=== PATIENT | female | born 1940 | race Caucasian/White ===

== ENCOUNTER 2017-07-31 03:04 | Emergency (ER) | payer MEDICARE, OTHER ==
[~2017-07-31] VITALS: Ht 160 cm; Wt 51.7 kg
[2017-07-31 03:22] VITALS: BP 164/88
[2017-08-05] MEDS ORDERED: NIFEDIPINE ER30 M1 PO (09:54)
== END 2017-07-31 04:05 | disposition home or self-care (01) ==
LOC: ER 03:04
DX: I10 Essential (primary) hypertension (principal); R51 Headache; Z82.49 Family history of ischemic heart disease and other diseases of the circulatory system
CPT/HCPCS: 99282

== ENCOUNTER 2017-08-03 22:28 | Observation (INO) | payer MEDICARE, OTHER ==
[~2017-08-03] VITALS: Ht 160 cm; Wt 56.7 kg
[2017-08-04] VITALS (9 sets, daily range): BP systolic 102–159; BP diastolic 67–95
[2017-08-04] MEDS ORDERED: NIFEDIPINE CR 30 MG TAB PO ONE
[2017-08-04 00:09] LABS: INR 0.85; PARTIAL THROMBOPLASTIN TIME 29.7 seconds (23.8-35.5)
[2017-08-04 00:20] LABS: ALANINE AMINOTRANSFERASE 19 IU/L (0-55); ALBUMIN 4.3 g/dL (3.5-5.0); ALBUMIN/GLOBULIN RATIO 1.1 (0.8-2.0); ALKALINE PHOSPHATASE 66 IU/L (40-150); ANION GAP 10.7 mmol/L (8-16); BLOOD UREA NITROGEN 16 mg/dL (7-26); BUN/CREATININE RATIO 21 (6-25); CALCIUM 9.9 mg/dL (8.4-10.2); CARBON DIOXIDE 27 mmol/L (22-29); CHLORIDE 92 mmol/L (98-107); CREATINE KINASE 91 IU/L (29-168); CREATININE, SERUM 0.76 mg/dL (0.57-1.11); EST GLOMERULAR FILTRATION RATE > 60 ML/MIN (60-); GLUCOSE 96 mg/dL (74-118); POTASSIUM 3.7 mmol/L (3.5-5.1); SODIUM 126 mmol/L (136-145)
[2017-08-04 00:26] LABS: TROPONIN I 0.003 ng/mL (0-0.300)
[2017-08-04 00:33] LABS: BASOPHILS % 0.3 % (0.0-1.0); HEMATOCRIT 37.9 % (34.2-44.1); HEMOGLOBIN 13.2 g/dL (12.0-16.0); LYMPHOCYTES % 33.9 % (18.0-39.1); MEAN CORPUSCULAR HEMOGLOBIN 31.4 pg (28-32); MEAN CORPUSCULAR HGB CONC 34.8 g/dL (31-35); MONOCYTES # (AUTO) 0.4 (0.2-0.8); MONOCYTES % 7.2 % (4.4-11.3); NEUTROPHILS # (AUTO) 3.5 (2.1-6.9); NEUTROPHILS % 58.1 % (38.7-80.0); PLATELET COUNT 241 x10e3/uL (140-360); RED BLOOD COUNT 4.21 x10e6/uL (3.6-5.1); RED CELL DISTRIBUTION WIDTH 12.3 % (11.7-14.4)
--- NOTE | 2017-08-04 00:38 | Diagnostic Imaging Report ---
History:HT and IRAHETA Comparison studies:None Technique: Axial images were obtained from the skull base to the vertex. Coronal and sagittal images reconstructed from the axial data. Intravenous contrast: None Findings: Scalp/skull: No abnormalities. Extra-axial spaces: No masses. No fluid collections. Brain sulci: Mildly prominent. Ventricles: Mild compensatory dilatation. No hydrocephalus. Parenchyma: Scattered small hypodensities in the supratentorial white matter are small vessel ischemic changes. No masses, hemorrhage, acute or chronic cortical vascular insults. Sellar/suprasellar region: No abnormalities. Craniocervical junction: Patent foramen magnum. No Chiari one malformation. Incidental findings: Atherosclerotic calcifications in the carotid siphons . Impression: No acute abnormalities. Chronic findings: 1. Mild generalized volume loss. 2. Mild supratentorial white matter small vessel ischemic changes. Signed by: DR Jose Barrett M.D. on 08/04/2017 12:34 AM
[2017-08-04] MEDS ORDERED: CLONAZEPAM0.5 MG PO (01:22)
[2017-08-04] MEDS ORDERED: CLONIDINE HCL0.1 MG PO (01:22)
[2017-08-04] MEDS ORDERED: LOSARTAN POTAS100 MG PO (01:22)
[2017-08-04] MEDS ORDERED: SODIUM CHLORIDE 0.9% 1000ML 1,000 ML IV STA (01:26)
[2017-08-04] MEDS ORDERED: ACETAMINOPHEN 325 MG TAB PO PRN (02:00)
[2017-08-04] MEDS ORDERED: CLONAZEPAM 0.5 MG TAB PO PRN (02:00)
[2017-08-04] MEDS ORDERED: ONDANSETRON HCL INJ 2 MG/ML VIAL IV PRN (02:00)
[2017-08-04] MEDS: SODIUM CHLORIDE 0.9% 1000ML 1,000 ML IV SCH (03:22)
[2017-08-04] MEDS: LOSARTAN POTASSIUM 100 MG TAB PO SCH (08:17)
[2017-08-04] MEDS: NIFEDIPINE CR 30 MG TAB PO SCH (08:18)
[2017-08-04] MEDS: CLONIDINE HCL 0.1 MG TAB PO SCH ×3 (09:00→20:53)
[2017-08-04 09:38] LABS: ANION GAP 11.7 mmol/L (8-16); BLOOD UREA NITROGEN 11 mg/dL (7-26); BUN/CREATININE RATIO 16 (6-25); CALCIUM 8.8 mg/dL (8.4-10.2); CARBON DIOXIDE 24 mmol/L (22-29); CHLORIDE 100 mmol/L (98-107); CREATININE, SERUM 0.69 mg/dL (0.57-1.11); EST GLOMERULAR FILTRATION RATE > 60 ML/MIN (60-); GLUCOSE 112 mg/dL (74-118); POTASSIUM 3.7 mmol/L (3.5-5.1); SODIUM 132 mmol/L (136-145)
[2017-08-04] MEDS ORDERED: CLONIDINE HCL 0.1 MG TAB PO PRN (10:00)
--- NOTE | 2017-08-04 10:39 | History and Physical ---
She is a 77-year-old female patient of mine who presented to the emergency room with the complaint of elevated blood pressure. The patient has elevated blood pressure. The patient had an ER visit. The patient was lately staying a little anxious, and her blood pressure was fluctuating up and down, more with up numbers. The patient was instructed to take clonidine 1 mg every 6 hours p.r.n. to control the blood pressure and given clonazepam for anxiety. Last night the patient had taken both medicines, but the patient's blood pressure remained elevated. The patient came to the emergency room. The patient was found to also have hyponatremia with a sodium of 126. The patient was admitted. REVIEW OF SYSTEMS: Anxiety, stress. No headache. No sore throat. No fever. No shortness of breath. No chest pain. PAST MEDICAL HISTORY: The patient has a significant history of atypical mycobacterial infection, hypertension, hyperlipidemia, arthritis, and anxiety. ALLERGIES: NO KNOWN DRUG ALLERGIES. SOCIAL HISTORY: Denies smoking. Denies using alcohol. FAMILY HISTORY: Hypertension. PHYSICAL EXAMINATION GENERAL: She is an elderly female patient lying in bed not in any acute distress. VITALS: Temperature 98, pulse rate 88, respiratory rate 16, blood pressure currently 130/80. HEENT: Normocephalic and atraumatic. NECK: No lymphadenopathy. LUNGS: Bilateral equal air entry. No rales. No rhonchi. HEART: S1 and S2 regular. No murmurs. No gallops. ABDOMEN: Soft. Bowel sounds are present. NEURO: No focal neurological deficit. ADMITTING IMPRESSION/DIAGNOSES 1. Hyponatremia. 2. Hypertension. 3. Anxiety. 4. History of mycobacterium avium complex infection. 5. Arthritis. PLAN: The patient will be given IV fluids and repeat sodium will be monitored. The patient will be monitored today. The patient will be kept in observation. Job#: [id number] MAU
[2017-08-05] MEDS: SODIUM CHLORIDE 0.9% 1000ML 1,000 ML IV SCH (00:40)
[2017-08-05 04:59] VITALS: BP 112/70
[2017-08-05 06:44] LABS: ALANINE AMINOTRANSFERASE 17 IU/L (0-55); ALBUMIN 3.5 g/dL (3.5-5.0); ALBUMIN/GLOBULIN RATIO 1.1 (0.8-2.0); ALKALINE PHOSPHATASE 47 IU/L (40-150); ANION GAP 10.9 mmol/L (8-16); BLOOD UREA NITROGEN 10 mg/dL (7-26); BUN/CREATININE RATIO 16 (6-25); CALCIUM 8.6 mg/dL (8.4-10.2); CARBON DIOXIDE 24 mmol/L (22-29); CHLORIDE 104 mmol/L (98-107); CREATININE, SERUM 0.62 mg/dL (0.57-1.11); EST GLOMERULAR FILTRATION RATE > 60 ML/MIN (60-); GLUCOSE 86 mg/dL (74-118); POTASSIUM 3.9 mmol/L (3.5-5.1); SODIUM 135 mmol/L (136-145)
[2017-08-05 08:00] VITALS: BP 125/71
[2017-08-05] MEDS: NIFEDIPINE CR 30 MG TAB PO SCH (08:53)
[2017-08-05] MEDS: LOSARTAN POTASSIUM 100 MG TAB PO SCH (08:53)
[2017-08-05] MEDS: CLONIDINE HCL 0.1 MG TAB PO SCH (08:53)
[2017-08-05] MEDS ORDERED: NIFEDIPINE ER30 M1 PO (09:54)
--- NOTE | 2017-08-05 10:55 | Discharge Summary ---
She is a 77-year-old female patient of mine who presented to the emergency room with the complaint of high blood pressure. ADMITTING IMPRESSION/DIAGNOSES 1. Accelerated hypertension. 2. Hyponatremia. Sodium was 126. 3. Anxiety. HOSPITAL COURSE: The patient was admitted with the above diagnosis. The patient was given IV fluids to correct the hyponatremia, which it did correct. The patient was also . Now, upon stabilization sodium is 135. The patient will be discharged home with: 1. Losartan 100 mg in the morning. 2. Clonidine 0.1 mg twice a day as needed. 3. Nifedipine 30 mg at night. The patient was advised to avoid excessive water or excessive liquids. Will monitor the patient's sodium as an outpatient. ROSETTA WILSON MD Job#: [id number] DC
== END 2017-08-05 12:34 | disposition home or self-care (01) ==
LOC: ER 22:28 → MED/SURG2 08-04 02:03
PROVIDERS: ADMIT Internal Medicine; ATTEND Internal Medicine
DX: I10 Essential (primary) hypertension (principal); E87.1 Hypo-osmolality and hyponatremia; F41.9 Anxiety disorder, unspecified; E78.5 Hyperlipidemia, unspecified; M19.90 Unspecified osteoarthritis, unspecified site; Z86.19 Personal history of other infectious and parasitic diseases
CPT/HCPCS: 36415 ×2; 70450; 80048; 80053 ×2; 82550; 82553; 84484; 85025; 85610; 85651; 85730; 93005; 99284; G0378 ×2; J7030 ×2

== ENCOUNTER 2017-10-10 01:43 | Emergency (ER) | payer MEDICARE, OTHER ==
[~2017-10-10] VITALS: Ht 160 cm; Wt 56.7 kg
[~2017-10-10 01:43] MED LIST: CLONAZEPAM0.5 MG PO; CLONIDINE HCL0.1 MG PO; LOSARTAN POTAS100 MG PO; NIFEDIPINE ER30 M1 PO
--- OUTSIDE RECORDS SUMMARY | 2017-10-10 01:46 | XMS REPORT ---
Author Author [facility] Address Unknown Phone Unavailable Care Team Providers Care Language Interpreter Name Role Phone TANIKA DC Unavailable Unavailable Problems This patient has no known problems. Allergies, Adverse Reactions, Alerts This patient has no known allergies or adverse reactions. Medications This patient has no known medications. Results Test Description Test Time Test Comments Text Results Atomic Results Result Comments CT BRAIN WO [place] [address] Patient Name: JOHN SONI MR #: [id number] : 1940 Age/Sex: 77/F Req #: [id number] Adm Physician: Ordered by: TANIKA DC MD Report #: [id number] Location: ER Room/Bed: Procedure: [id number] CT/CT BRAIN WO Exam Date: Exam Time: REPORT STATUS: Signed History:HT and IRAHETA Comparison studies:None Technique: Axial images were obtained from the skull base to the vertex. Coronal and sagittal images reconstructed from the axial data. Intravenous contrast: None Findings: Scalp/skull: No abnormalities. Extra-axial spaces: No masses. No fluid collections. Brain sulci: Mildly prominent. Ventricles: Mild compensatory dilatation. No hydrocephalus. Parenchyma: Scattered small hypodensities in the supratentorial white matter are small vessel ischemic changes. No masses, hemorrhage, acute or chronic cortical vascular insults. Sellar/suprasellar region: No abnormalities. Craniocervical junction: Patent foramen magnum. No Chiari one malformation. Incidental findings: Atherosclerotic calcifications in the carotid siphons . Impression: No acute abnormalities. Chronic findings: 1. Mild generalized volume loss. 2. Mild supratentorial white matter small vessel ischemic changes. Signed by: DR Jose Barrett M.D. on 2017 12:34 AM Dictated By: JOSE GRADY MD Transcribed By: YOLANDA on 08/04/1733 COPY TO: TANIKA DC MD
[2017-10-10 01:59] VITALS: BP 152/88
[2017-10-10] MEDS: METOPROLOL TARTRATE 25 MG TAB PO STA (02:02)
== END 2017-10-10 02:05 | disposition home or self-care (01) ==
LOC: ER 01:43
DX: R00.0 Tachycardia, unspecified (principal); I10 Essential (primary) hypertension
CPT/HCPCS: 93005; 99282

== ENCOUNTER 2017-12-31 10:23 | Emergency (ER) | payer MEDICARE, OTHER ==
[~2017-12-31] VITALS: Ht 160 cm; Wt 56.7 kg
[2017-12-31] MEDS ORDERED: SODIUM CHLORIDE 0.9% 500ML 500 ML IV STA (11:04)
[2017-12-31] MEDS ORDERED: ONDANSETRON HCL INJ 2 MG/ML VIAL IV STA (11:04)
[2017-12-31] MEDS ORDERED: CEFTRIAXONE SOD 1 GM VIAL IV SCH (11:15)
[2017-12-31] MEDS ORDERED: IBUPROFEN 400 MG TAB PO ONE (11:30)
[2017-12-31 11:46] LABS: BASOPHILS % 0.3 % (0.0-1.0); HEMOGLOBIN 13.4 g/dL (12.0-16.0); LYMPHOCYTES # (AUTO) 1.5 (1.0-3.2); LYMPHOCYTES % 21.2 % (18.0-39.1); MEAN CORPUSCULAR HEMOGLOBIN 31.3 pg (28-32); MEAN CORPUSCULAR HGB CONC 34.4 g/dL (31-35); MEAN CORPUSCULAR VOLUME 91.1 fL (81-99); MONOCYTES # (AUTO) 0.7 (0.2-0.8); MONOCYTES % 8.9 % (4.4-11.3); PLATELET COUNT 218 x10e3/uL (140-360); RED BLOOD COUNT 4.28 x10e6/uL (3.6-5.1); RED CELL DISTRIBUTION WIDTH 12.5 % (11.7-14.4)
[2017-12-31 12:06] LABS: CLARITY,URINE HAZY (CLEAR); COLOR,URINE YELLOW (YELLOW); LEUKOCYTE ESTERASE ,URINE 2+ (NEGATIVE); NITRITE,URINE NEGATIVE (NEGATIVE); PROTEIN,URINE DIPSTICK NEGATIVE (NEGATIVE)
[2017-12-31 12:07] LABS: BILIRUBIN,URINE NEGATIVE (NEGATIVE); KETONES,URINE NEGATIVE (NEGATIVE); URINE UROBILINOGEN 0.2 mg/dL (0.2 - 1)
[2017-12-31 12:20] LABS: ALANINE AMINOTRANSFERASE 16 IU/L (0-55); ALBUMIN 4.3 g/dL (3.5-5.0); ALBUMIN/GLOBULIN RATIO 1.1 (0.8-2.0); ALKALINE PHOSPHATASE 55 IU/L (40-150); ANION GAP 15.2 mmol/L (8-16); BLOOD UREA NITROGEN 20 mg/dL (7-26); BUN/CREATININE RATIO 24 (6-25); CALCIUM 10.4 mg/dL (8.4-10.2); CARBON DIOXIDE 26 mmol/L (22-29); CHLORIDE 97 mmol/L (98-107); CREATINE KINASE 80 IU/L (29-168); CREATININE, SERUM 0.82 mg/dL (0.57-1.11); EST GLOMERULAR FILTRATION RATE > 60 ML/MIN (60-); GLUCOSE 100 mg/dL (74-118); POTASSIUM 4.2 mmol/L (3.5-5.1); SODIUM 134 mmol/L (136-145)
[2017-12-31 12:21] LABS: BACTERIA,URINE FEW /HPF; EPITHELIAL CELLS,URINE FEW /LPF; MUCUS,URINE FEW (RARE); RBC,URINE 0-5 /HPF (0-5); WBC,URINE (MAN) >50 /HPF (0-5)
== END 2017-12-31 13:54 | disposition home or self-care (01) ==
LOC: ER 10:23
DX: N39.0 Urinary tract infection, site not specified (principal); R11.0 Nausea; E86.0 Dehydration; R35.0 Frequency of micturition
CPT/HCPCS: 36415; 80053; 81001; 82550; 82553; 84484; 85025; 87086; 87186; 93005; 99284; J0696; J2405; J7040

== ENCOUNTER → 2018-02-03 | Outpatient (CLI) | payer MEDICARE, OTHER ==
--- NOTE | 2018-02-03 16:17 | Diagnostic Imaging Report ---
PROCEDURE:US RETROPERITONEAL ( KIDNEY ). COMPARISON:None. INDICATIONS:asymptomatic microscopic hematuria TECHNIQUE: Winters-scale and color sonographic images of the bilateral kidneys and bladder where obtained in transverse and longitudinal planes. FINDINGS: RIGHT KIDNEY: 9.1 cm, cortex 1.2 cm Cysts: None Solid masses: None Stones: None Hydronephrosis: None Echogenicity: Normal LEFT KIDNEY: 10.2 cm, cortex 1.5>cm Cysts: None Solid masses: None Stones: None Hydronephrosis: Mild pelviectasis. No aristides hydronephrosis. Echogenicity: Normal Bladder: Unremarkable. CONCLUSION: No hydronephrosis, stones, or solid renal mass. Dictated by: Vinnie Kam M.D. on 02/03/2018 at 16:21 Electronically approved by: Vinnie Kam M.D. on 02/03/2018 at 16:21
== END ==
LOC: US 14:19
PROVIDERS: ATTEND Urology
DX: R31.21 Asymptomatic microscopic hematuria (principal); N39.0 Urinary tract infection, site not specified
CPT/HCPCS: 76770

== ENCOUNTER → 2018-02-08 | Day surgery (SDC) | payer MEDICARE, OTHER ==
[2018-02-03 16:29] LABS: BASOPHILS % 0.4 % (0.0-1.0); HEMATOCRIT 34.9 % (34.2-44.1); LYMPHOCYTES # (AUTO) 2.1 (1.0-3.2); LYMPHOCYTES % 28.3 % (18.0-39.1); MEAN CORPUSCULAR HEMOGLOBIN 31.6 pg (28-32); MEAN CORPUSCULAR HGB CONC 34.4 g/dL (31-35); MEAN CORPUSCULAR VOLUME 91.8 fL (81-99); MONOCYTES # (AUTO) 0.8 (0.2-0.8); MONOCYTES % 10.9 % (4.4-11.3); NEUTROPHILS # (AUTO) 4.3 (2.1-6.9); NEUTROPHILS % 59.4 % (38.7-80.0); PLATELET COUNT 246 x10e3/uL (140-360); RED CELL DISTRIBUTION WIDTH 12.5 % (11.7-14.4)
--- NOTE | 2018-02-03 18:19 | Diagnostic Imaging Report ---
PROCEDURE: Frontal and lateral views of the chest. COMPARISON: Chest radiographs from 10/10/2009 INDICATIONS: PREOP CXR FINDINGS: Lines/tubes: None. Lungs: Linear and patchy airspace opacities are seen throughout the right lung. There is a 1.9 cm cavitary lesion in the right upper lung. Mild upper lobe bronchiectasis, left greater than right. Pleura: There is no pleural effusion or pneumothorax. Heart and mediastinum: Normal heart size. Tortuosity and atherosclerosis of the thoracic aorta. Bones: Mid thoracic compression deformity with mild focal kyphosis, unchanged. IMPRESSION: Linear and patchy airspace opacities throughout the right lung. There is a 1.9 cm cavitary lesion in the right upper lobe. The findings could be infectious or malignant. Recommend a CT of the chest for further evaluation. Dictated by: Vinnie Kam M.D. on 02/03/2018 at 18:23 Electronically approved by: Vinnie Kam M.D. on 02/03/2018 at 18:23
[~2018-02-08] MED LIST changes: +CALTRATE PO; +CEFTRIAXONE SOD 1 GM VIAL ONE; +CENTRUM SILVER1 EAC3 PO; +DEXAMETHASONE SOD PHOS INJ 4 MG/ML VIAL ONE; +FOLIC ACID1 MG PO; +IOPAMIDOL 300MG/ML 50ML INFUS..BTL IV ONE; +LIDOCAINE HCL 2% LOCAL INJ 5 ML SDV VIAL INJ ONE; +LUMIGAN2.5 M1 OP; +MACUHEALTH PO; +METOPROLOL SUCC25 MG PO; +MIDAZOLAM HCL 2 MG/2 ML VIAL ONE; +ONDANSETRON HCL INJ 2 MG/ML VIAL ONE; +PROLIA60 MG/1 ML; +PROPOFOL IV EMULSION 10 MG/ML 20 ML VIAL ONE; +SEVOFLURANE INHAL SOLN 250 ML PEN BTL ONE; +VITAMIN A PO; +VITAMIN D32000 UNI1 PO
[2018-02-08 14:44] LABS: ANION GAP 12.3 mmol/L (8-16); BLOOD UREA NITROGEN 20 mg/dL (7-26); BUN/CREATININE RATIO 26 (6-25); CALCIUM 9.3 mg/dL (8.4-10.2); CARBON DIOXIDE 28 mmol/L (22-29); CHLORIDE 101 mmol/L (98-107); CREATININE, SERUM 0.76 mg/dL (0.57-1.11); EST GLOMERULAR FILTRATION RATE > 60 ML/MIN (60-); GLUCOSE 87 mg/dL (74-118); POTASSIUM 4.3 mmol/L (3.5-5.1); SODIUM 137 mmol/L (136-145)
--- NOTE | 2018-02-09 15:37 | Operative Report ---
DATE OF PROCEDURE: February 08, 2018 PREOPERATIVE DIAGNOSES 1. Multiple chronic urinary tract infections. 2. Clinical signs of interstitial cystitis without hematuria. POSTOPERATIVE DIAGNOSES 1. Multiple chronic urinary tract infections. 2. Clinical signs of interstitial cystitis without hematuria. 3. Vaginal atrophy. 4. Grade 2 cystocele. OPERATIONS PERFORMED 1. Cystourethroscopy with hydrodistention (entirely separate procedure for clinical signs and symptoms of interstitial cystitis). 2. Cystourethroscopy with left ureteral catheterization and left retrograde pyelogram (separate procedure for multiple chronic urinary tract infections). 3. Cystourethroscopy with right ureteral catheterization and right retrograde pyelogram (separate procedure for multiple chronic urinary tract infections). 4. Supervision of fluoroscopy. 5. Interpretation of retrograde pyelography. ANESTHESIA: General. ESTIMATED BLOOD LOSS: Minimal. COMPLICATIONS: None. INDICATIONS FOR PROCEDURE: Ms. Hawkins is a very pleasant 77-year-old female with multiple chronic urinary tract infections and clinical symptoms of interstitial cystitis. She and I had a long discussion in regard to the alternatives, the risks and benefits including doing nothing, cystoscopy, IVP, retrograde pyelograms or renal ultrasound. Due to the nephrotoxic risk of dye and renal insufficiency, she elected to proceed with retrograde pyelograms. PROCEDURE IN DETAIL: After informed consent was obtained, the patient was taken to the operative suite, placed supine on the operating table and underwent general anesthesia by the anesthesia service. She was placed in the dorsal lithotomy position and sterilely prepped and draped in the standard fashion for cystoscopy. A 22.5-Swedish cystoscope was inserted per urethra, and a normal urethra was noted. Panendoscopy of the bladder revealed no tumors, no stones. Both ureteral orifices were in their normal anatomical location and position and were seen to efflux clear urine. Bilateral retrograde pyelograms were performed, which were normal. A hydrodistention was performed and revealed a capacity of 800 mL, no glomerulations, no Hunner's ulcers. The bladder was drained, and the patient was awakened from anesthesia and transported to the recovery room in excellent condition. SUPERVISION OF FLUOROSCOPY AND INTERPRETATION OF RETROGRADE PYELOGRAPHY: I was present throughout the entire procedure, and I supervised the fluoroscopy. There was no radiologist present at any time in this procedure. Attention was turned toward the left and right ureteral orifices, which were catheterized with an 8-Swedish cone-tipped catheter in a retrograde fashion. Contrast was injected, revealing delicate ureters, delicate caliceal systems, no evidence of filling defects, no evidence of hydronephrosis. IMPRESSION: Normal retrograde pyelograms. Job#: [id number] LEIGHA
== END | disposition home or self-care (01) ==
LOC: OR 12:55
PROVIDERS: ATTEND Urology
DX: N39.0 Urinary tract infection, site not specified (principal); N39.46 Mixed incontinence; R31.29 Other microscopic hematuria; R35.1 Nocturia; N95.2 Postmenopausal atrophic vaginitis; N81.10 Cystocele, unspecified; I10 Essential (primary) hypertension; Z01.810 Encounter for preprocedural cardiovascular examination; Z01.812 Encounter for preprocedural laboratory examination
CPT/HCPCS: 36415 ×2; 52005; 71046; 74420; 80048; 85025; 93005; C1758; J0696; J1100; J2001; J2250; J2405; Q9967

== ENCOUNTER → 2018-03-23 | Outpatient (CLI) | payer MEDICARE, OTHER ==
[~2018-03-23] MED LIST changes: -CEFTRIAXONE SOD 1 GM VIAL ONE; -DEXAMETHASONE SOD PHOS INJ 4 MG/ML VIAL ONE; -IOPAMIDOL 300MG/ML 50ML INFUS..BTL IV ONE; -LIDOCAINE HCL 2% LOCAL INJ 5 ML SDV VIAL INJ ONE; -MIDAZOLAM HCL 2 MG/2 ML VIAL ONE; -ONDANSETRON HCL INJ 2 MG/ML VIAL ONE; -PROPOFOL IV EMULSION 10 MG/ML 20 ML VIAL ONE; -SEVOFLURANE INHAL SOLN 250 ML PEN BTL ONE
--- NOTE | 2018-03-23 16:15 | Diagnostic Imaging Report ---
Lumbar Spine Radiographs: 5 views including obliques Sacral Radiographs: 2 views HISTORY: Low back pain COMPARISON: None available. DISCUSSION: The osseous structures are partially obscured by stool and bowel gas. Diffusely decreased mineralization of the osseous structures limits bone detail. There are five non-rib bearing lumbar vertebral bodies. Left convex curvature. No displaced fracture or compression deformity is identified. Disc Spaces: Minimal to mild multilevel degenerative changes, most notably at L5-S1. Facets: Multilevel hypertrophic facet arthrosis, most notably severe at L4-5 and moderate L5-S1. IMPRESSION: 1. No acute radiographic abnormality. 2. Multilevel degenerative changes, most notably at L4-5 and L5-S1. Signed by: Dr. Keyur Rodriguez D.O., M.M.M. on 03/23/2018 4:12 PM
== END ==
LOC: RAD 14:44
PROVIDERS: ATTEND Internal Medicine
DX: M54.5 Low back pain (principal)
CPT/HCPCS: 72110; 72220

== ENCOUNTER 2018-04-20 08:29 | Emergency (ER) | payer MEDICARE, OTHER ==
[~2018-04-20] VITALS: Ht 160 cm; Wt 50.8 kg
--- NOTE | 2018-04-20 10:29 | Diagnostic Imaging Report ---
Examination: CT LUMBAR SPINE WITHOUT CONTRAST History: Fall with back pain. Comparison studies: Lumbar spine x-ray performed March 23, 2018 Technique: Axial images were obtained through the lumbar spine from mid T12. Coronal and sagittal reconstructions obtained from the axial data. Dose modulation, iterative reconstruction, and/or weight based adjustment of the mA/kV was utilized to reduce the radiation dose to as low as reasonably achievable. Intravenous contrast: None Findings: The usual 5 non-rib bearing lumbar vertebral bodies are present. Alignment: Normal lordosis. Leftward curvature centered at L3. Soft tissues: Punctate atherosclerotic calcification of the abdominal aorta Paraspinal muscles: Mild fatty atrophy Sacroiliac joints: No degenerative changes. Vertebrae: No infection or neoplasm. Partially visualized acute compression fracture of the T12 vertebral body with a fracture line paralleling the superior endplate. Degenerative changes: L1-L2: No abnormalities. L2-L3: Asymmetric to the left disc bulge results in mild left neural foraminal narrowing. No canal or right foraminal stenosis. L3-L4: Diffuse disc bulge results in mild bilateral neural foraminal narrowing and mild canal stenosis. L4-L5: Diffuse bulge and mild ligamentum flavum thickening result in mild bilateral neural foraminal narrowing and moderate canal stenosis. L5-S1: Asymmetric to the left disc bulge results in mild left neural foraminal narrowing. No right foraminal or canal stenosis IMPRESSION: 1. Partially visualized acute compression fracture of the T12 vertebral body. 2. Degenerative changes of the spine from L2-L3 through L5-S1 with moderate canal stenosis at L4-L5 and mild canal stenosis at L3-L4. Dr. Mahnaz Crocker discussed acute findings with Dr. Tran on 04/20/2018 at 1025 hours. Signed by: Dr. Mahnaz Crocker M.D. on 04/20/2018 10:26 AM
[2018-04-20] MEDS ORDERED: ONDANSETRON HCL INJ 2 MG/ML VIAL IV STA ×3 (10:56→15:52)
[2018-04-20] MEDS ORDERED: MORPHINE SULFATE INJ 4 MG/ML INJ IV PRN (11:00)
--- NOTE | 2018-04-20 11:46 | Diagnostic Imaging Report ---
EXAMINATION: Head and cervical spine CT without contrast. HISTORY: Syncope, fall, trauma, head and neck pain COMPARISON: None. TECHNIQUE: Multidetector axial images were obtained without contrast from the foramen magnum to the vertex and through the cervical spine. The images were reconstructed using brain and bone algorithms. Thin section brain images were reformatted into coronal and sagittal planes. Dose modulation, iterative reconstruction, and/or weight based adjustment of the mA/kV was utilized to reduce the radiation dose to as low as reasonably achievable. HEAD CT FINDINGS: Skull: No lytic or blastic lesions. No fractures. Parenchyma: Few scatter white matter hypodensities, most likely nonspecific chronic microvascular ischemic changes, slightly more confluent in the bilateral parietal ladd radiata/centrum semiovale, with multiple mildly prominent perivascular spaces.. No mass, hemorrhage or CT evidence of acute vascular insult. Brain volume: Normal for age. Ventricles: No hydrocephalus or displacement. Arteries: No density suggestive of thrombus. Dural sinuses: No abnormal density. Extra-axial spaces: No abnormal density. Foramen magnum: No mass, Chiari malformation, or basilar invagination. Sella: No obvious mass. Paranasal/mastoid sinuses: Imaged portions unremarkable. CERVICAL SPINE CT FINDINGS: Alignment:Normal alignment and lordosis. Soft tissues: Normal. Vertebrae: Normal height and density. No acute fracture, infection or neoplasm. Nonaggressive appearing sclerotic lesion in the left lateral mass of C1, probable bone islands. Degenerative changes: C1-C2: Normal C2-C3: Disc osteophyte, uncovertebral and facet processes. No stenoses. C3-C4: Disc osteophyte, uncovertebral and facet arthrosis. Moderate right foraminal stenoses. C4-C5: Disc osteophyte, uncovertebral and facet processes. Moderate right and mild left foraminal stenosis. C5-C6: Listhesis. Disc osteophyte, uncovertebral and facet retrolisthesis. Mild canal and moderately severe foraminal stenosis. C6-C7: Asymmetric to left disc osteophyte, uncovertebral and facet arthrosis. Severe left foraminal stenosis. C7-T1: Normal IMPRESSION: Head CT: 1. No acute postraumatic intracranial hemorrhage. 2. Mild chronic microvascular ischemic changes. Cervical spine CT: 1. No acute fractures or dislocations. 2. Chronic degenerative changes as described. Note: Acute post traumatic spinal cord, vascular or ligamentous injury cannot adequately be assessed with CT. Signed by: Dr. Akila Infante M.D. on 04/20/2018 11:43 AM
[2018-04-20 12:06] LABS: BASOPHILS % 0.2 % (0.0-1.0); HEMATOCRIT 38.1 % (34.2-44.1); HEMOGLOBIN 13.3 g/dL (12.0-16.0); LYMPHOCYTES # (AUTO) 1.6 (1.0-3.2); LYMPHOCYTES % 19.2 % (18.0-39.1); MEAN CORPUSCULAR HEMOGLOBIN 31.2 pg (28-32); MEAN CORPUSCULAR HGB CONC 34.9 g/dL (31-35); MEAN CORPUSCULAR VOLUME 89.4 fL (81-99); MONOCYTES # (AUTO) 0.7 (0.2-0.8); MONOCYTES % 8.1 % (4.4-11.3); NEUTROPHILS % 71.1 % (38.7-80.0); PLATELET COUNT 258 x10e3/uL (140-360); RED BLOOD COUNT 4.26 x10e6/uL (3.6-5.1); RED CELL DISTRIBUTION WIDTH 12.6 % (11.7-14.4)
[2018-04-20 12:20] LABS: ALANINE AMINOTRANSFERASE 24 IU/L (0-55); ALBUMIN 4.3 g/dL (3.5-5.0); ALBUMIN/GLOBULIN RATIO 1.1 (0.8-2.0); ALKALINE PHOSPHATASE 61 IU/L (40-150); ANION GAP 19.7 mmol/L (8-16); BLOOD UREA NITROGEN 17 mg/dL (7-26); BUN/CREATININE RATIO 19 (6-25); CARBON DIOXIDE 22 mmol/L (22-29); CHLORIDE 96 mmol/L (98-107); CREATINE KINASE 109 IU/L (29-168); CREATININE, SERUM 0.89 mg/dL (0.57-1.11); EST GLOMERULAR FILTRATION RATE > 60 ML/MIN (60-); GLUCOSE 84 mg/dL (74-118); POTASSIUM 3.7 mmol/L (3.5-5.1); SODIUM 134 mmol/L (136-145)
[2018-04-20] MEDS ORDERED: FENTANYL CITRATE/PF 100MCG/2 ML INJ IV ONE (13:30)
[2018-04-20] MEDS ORDERED: HYDROMORPHONE 2MG/ML 2 MG/ML ML IV ONE ×2 (14:30→18:00)
--- NOTE | 2018-04-20 16:07 | Diagnostic Imaging Report ---
CT of the pelvis was obtained WITHOUT contrast. TECHNIQUE: Standard departmental protocols were used. Sagittal and coronal reformations were obtained. Total exam DLP: 291 mGy-cm Dose modulation, iterative reconstruction, and/or weight based adjustment of the mA/kV was utilized to reduce the radiation dose to as low as reasonably achievable. HISTORY: Fall, back pain COMPARISON: None. FINDINGS: Bones: Diffusely decreased mineralization of the osseous structures limits bone detail. No acute displaced fracture. Joints: Minimal bilateral hip, pubic symphysis and sacroiliac joint degenerative changes. Soft tissues: A Melendrez catheter within the partially decompressed urinary bladder. Colonic diverticulosis. Nonspecific wall thickening of probable portion of the transverse colon. IMPRESSION: 1. No acute displaced fracture. 2. Osseous demineralization, recommend correlation with bone densitometry. 3. Colonic diverticulosis. 4. Nonspecific bowel wall thickening, likely a partially visualized portion of the transverse colon, advise consultation with gastroenterology to discuss if colonoscopy is warranted for further evaluation. Signed by: Dr. Keyur Rodriguez D.O., M.M.M. on 04/20/2018 4:04 PM
--- NOTE | 2018-04-20 16:24 | Diagnostic Imaging Report ---
EXAMINATION: CT of the thoracic spine without contrast. HISTORY: Status post fall, trauma, back pain, spine fracture COMPARISON: Lumbar spine CT performed on the same date TECHNIQUE: Multidetector helical axial images were obtained without contrast through the thoracic spine. The images were reconstructed using bone and soft tissue algorithms and were viewed in axial, sagittal and coronal planes. Dose modulation, iterative reconstruction, and/or weight based adjustment of the mA/kV was utilized to reduce the radiation dose to as low as reasonably achievable. FINDINGS: Curvature: Normal kyphosis. Vertebrae: Again seen acute minimal burst fracture involving the right posterior cortex. There is depression of the superior endplate and decreased vertebral body height by approximately 40%. No posterior retropulsion and no coughing noted. No evidence of posterior ligamentous injury. Discs: Mild symmetric disc bulge and possible small central disc protrusion at T12-L1 without significant stenoses. Otherwise no significant degenerative changes, no spinal canal or foraminal stenosis. Spinal canal: Unremarkable. Paraspinal soft tissues: Unremarkable. Posterior ribs: Unremarkable. IMPRESSION: 1. Again seen acute compression/burst fracture of the T12 vertebral body without posterior retropulsion or canal stenosis. No evidence of posterior ligamentous complex compromise. 2. No other thoracic spine fractures. Note is made that acute posttraumatic spinal cord, vascular or ligamentous injury cannot adequately be assessed with CT. Dr. Mahnaz Crocker discussed acute findings with Dr. Tran on 04/20/2018 at 1025 hours. Signed by: Dr. Akila Infante M.D. on 04/20/2018 4:21 PM
[2018-04-20] MEDS ORDERED: HYDROMORPHONE 1MG/1ML INJ IV STA (17:48)
[2018-04-20 19:11] VITALS: BP 129/77
== END 2018-04-20 19:18 | disposition other institution (70) ==
LOC: ER 08:33
DX: R55 Syncope and collapse (principal); M54.6 Pain in thoracic spine; M54.5 Low back pain; S22.081A Stable burst fracture of T11-T12 vertebra, initial encounter for closed fracture; W01.0XXA Fall on same level from slipping, tripping and stumbling without subsequent striking against object, initial encounter
CPT/HCPCS: 36415; 51700; 70450; 72125; 72128; 72131; 72192; 80053; 82550; 82553; 84484; 85025; 93005; 99285; J1170; J2270; J2405

== ENCOUNTER → 2021-01-22 | Day surgery (SDC) | payer MEDICARE, OTHER ==
[2021-01-20 13:14] LABS: BASOPHILS % 0.3 % (0.0-1.0); EOSINOPHILS # (AUTO) 0.2 (0.0-0.4); EOSINOPHILS % 2.3 % (0.0-6.0); HEMATOCRIT 35.1 % (34.2-44.1); HEMOGLOBIN 11.5 g/dL (12.0-16.0); LYMPHOCYTES # (AUTO) 1.7 (1.0-3.2); LYMPHOCYTES % 26.3 % (18.0-39.1); MEAN CORPUSCULAR HEMOGLOBIN 32.2 pg (28-32); MEAN CORPUSCULAR HGB CONC 32.8 g/dL (31-35); MEAN CORPUSCULAR VOLUME 98.3 fL (81-99); MONOCYTES # (AUTO) 0.5 (0.2-0.8); MONOCYTES % 7.3 % (4.4-11.3); NEUTROPHILS # (AUTO) 4.1 (2.1-6.9); NEUTROPHILS % 63.3 % (38.7-80.0); PLATELET COUNT 199 x10e3/uL (140-360); RED BLOOD COUNT 3.57 x10e6/uL (3.6-5.1); RED CELL DISTRIBUTION WIDTH 13.2 % (11.7-14.4)
[~2021-01-22] MED LIST changes: +ALENDRONATE SODI5 MG; +AZOPT10 ML OU; +CRANBERRY200 MG PO; +CRESTOR10 MG PO; +FISH OIL 1,0001 EAC2 PO; +LIDOCAINE HCL 2% LOCAL INJ 5 ML SDV VIAL INJ ONE; +PRESERVISION T1 EACH PO; +PROPOFOL IV EMULSION 10 MG/ML 20 ML VIAL ONE; +SERTRALINE HCL50 MG PO
[2021-01-22 13:15] VITALS: BP 134/84
== END | disposition home or self-care (01) ==
LOC: OR 09:11
PROVIDERS: ATTEND Internal Medicine Gastroenterology
DX: K29.50 Unspecified chronic gastritis without bleeding (principal); K57.30 Diverticulosis of large intestine without perforation or abscess without bleeding; K64.8 Other hemorrhoids; K44.9 Diaphragmatic hernia without obstruction or gangrene; I10 Essential (primary) hypertension; Z01.810 Encounter for preprocedural cardiovascular examination; Z01.812 Encounter for preprocedural laboratory examination; Z88.1 Allergy status to other antibiotic agents; Z88.8 Allergy status to other drugs, medicaments and biological substances
CPT/HCPCS: 36415; 43239; 45380; 85025; 93005; J2001; J2704; 45378

== ENCOUNTER 2022-07-30 14:13 | Inpatient (IN) | payer MEDICARE ==
[~2022-07-30] VITALS: Ht 160 cm; Wt 50.8 kg
[~2022-07-30 14:13] MED LIST changes: -LIDOCAINE HCL 2% LOCAL INJ 5 ML SDV VIAL INJ ONE; -PROPOFOL IV EMULSION 10 MG/ML 20 ML VIAL ONE
[2022-07-30 16:26] VITALS: BP 164/82
[2022-07-30 16:44] VITALS: BP 164/82
[2022-07-30 18:22] VITALS: BP 164/82
[2022-07-30 20:00] VITALS: BP 127/71
[2022-07-30 20:20] LABS: BASOPHILS % 0.2 % (0.0-1.0); HEMATOCRIT 35.4 % (34.2-44.1); HEMOGLOBIN 11.5 g/dL (12.0-16.0); LYMPHOCYTES # (AUTO) 1.4 (1.0-3.2); LYMPHOCYTES % 11.5 % (18.0-39.1); MEAN CORPUSCULAR HEMOGLOBIN 29.5 pg (28-32); MEAN CORPUSCULAR HGB CONC 32.5 g/dL (31-35); MEAN CORPUSCULAR VOLUME 90.8 fL (81-99); MONOCYTES % 8.2 % (4.4-11.3); NEUTROPHILS # (AUTO) 9.6 (2.1-6.9); NEUTROPHILS % 79.4 % (38.7-80.0); PLATELET COUNT 299 x10e3/uL (140-360); RED CELL DISTRIBUTION WIDTH 12.1 % (11.7-14.4)
[2022-07-30 20:26] VITALS: BP 164/82
[2022-07-30 20:33] LABS: INR 1.29; PROTHROMBIN TIME 16.3 seconds (11.9-14.5)
[2022-07-30 20:34] LABS: PARTIAL THROMBOPLASTIN TIME 44.5 seconds (23.8-35.5)
[2022-07-30 20:42] LABS: ALBUMIN 3.2 g/dL (3.5-5.0); ALBUMIN/GLOBULIN RATIO 0.8 (0.8-2.0); ANION GAP 15.6 mmol/L (8-16); CALCIUM 8.7 mg/dL (8.4-10.2); CREATININE, SERUM 0.64 mg/dL (0.57-1.11); POTASSIUM 3.6 mmol/L (3.5-5.1)
[2022-07-30 20:53] LABS: CHOL/HDL RATIO 2.5 (3.0-3.6)
[2022-07-30 20:56] LABS: BLOOD UREA NITROGEN 11 mg/dL (7-26); GLUCOSE 101 mg/dL (74-118); OSMOLALITY,SERUM 247 mOsm/kg (278-305); SODIUM 123 mmol/L (136-145)
[2022-07-30 21:12] LABS: THYROID STIMULATING HORMONE 4.195 uIU/mL (0.350-4.940)
[2022-07-30] MEDS ORDERED: DIPHENHYDRAMINE HCL 25 MG CAP PO PRN (22:15)
[2022-07-30] MEDS ORDERED: MELATONIN 5 MG TABLET PO PRN (22:15)
[2022-07-30] MEDS ORDERED: DEXTROSE 50% SYRINGE 50 ML IV PRN (22:15)
[2022-07-30] MEDS ORDERED: POTASSIUM CHLORIDE 20 MEQ TAB CR PO PRN (22:15)
[2022-07-30] MEDS ORDERED: ACETAMINOPHEN 325 MG TAB PO PRN (22:15)
[2022-07-30] MEDS ORDERED: ONDANSETRON HCL INJ 2MG/ML 2ML 2 MG/ML VIAL IV PRN (22:15)
[2022-07-30] MEDS ORDERED: LIDOCAINE 4% PATCH TP PRN (22:15)
[2022-07-30] MEDS ORDERED: BENZONATATE 100 MG CAP PO PRN (22:15)
[2022-07-30] MEDS ORDERED: ALBUTEROL/IPRATROPIUM 3 ML NEB NEB PRN (22:15)
[2022-07-30] MEDS ORDERED: HYDRALAZINE HCL 20 MG/ML VIAL IV PRN (22:15)
[2022-07-30] MEDS ORDERED: SIMETHICONE 80 MG CHEW PO PRN (22:15)
[2022-07-30] MEDS ORDERED: FLUOXETINE HCL20 MG PO (23:07)
[2022-07-31] VITALS (8 sets, daily range): BP systolic 106–127; BP diastolic 53–82
[2022-07-31 02:09] LABS: CLARITY,URINE CLEAR (CLEAR); COLOR,URINE YELLOW (YELLOW)
[2022-07-31 02:10] LABS: KETONES,URINE 2+ (NEGATIVE); LEUKOCYTE ESTERASE ,URINE NEGATIVE (NEGATIVE); NITRITE,URINE NEGATIVE (NEGATIVE); PROTEIN,URINE DIPSTICK NEGATIVE (NEGATIVE); URINE UROBILINOGEN 0.2 mg/dL (0.2 - 1)
[2022-07-31 02:11] LABS: BACTERIA,URINE RARE /HPF; EPITHELIAL CELLS,URINE RARE /LPF; WBC,URINE (MAN) 0-5 /HPF (0-5)
[2022-07-31 05:41] LABS: BASOPHILS % 0.3 % (0.0-1.0); HEMATOCRIT 33.8 % (34.2-44.1); HEMOGLOBIN 11.2 g/dL (12.0-16.0); LYMPHOCYTES # (AUTO) 1.5 (1.0-3.2); MEAN CORPUSCULAR HEMOGLOBIN 29.9 pg (28-32); MEAN CORPUSCULAR HGB CONC 33.1 g/dL (31-35); MEAN CORPUSCULAR VOLUME 90.1 fL (81-99); MONOCYTES # (AUTO) 1.1 (0.2-0.8); MONOCYTES % 10.6 % (4.4-11.3); NEUTROPHILS # (AUTO) 7.4 (2.1-6.9); NEUTROPHILS % 73.4 % (38.7-80.0); PLATELET COUNT 293 x10e3/uL (140-360); RED BLOOD COUNT 3.75 x10e6/uL (3.6-5.1); RED CELL DISTRIBUTION WIDTH 11.9 % (11.7-14.4)
[2022-07-31 06:01] LABS: ANION GAP 15.4 mmol/L (8-16); CALCIUM 8.3 mg/dL (8.4-10.2); CHOL/HDL RATIO 2.6 (3.0-3.6); CREATININE, SERUM 0.61 mg/dL (0.57-1.11); MAGNESIUM 1.9 MG/DL (1.3-2.1); PHOSPHORUS 2.4 MG/DL (2.3-4.7); POTASSIUM 3.4 mmol/L (3.5-5.1)
[2022-07-31 06:25] LABS: THYROID STIMULATING HORMONE 5.181 uIU/mL (0.350-4.940)
[2022-07-31] MEDS ORDERED: LEVOTHYROXINE100 MC1 IV (08:33)
[2022-07-31] MEDS ORDERED: LEVOTHYROXINE SODIUM 100 MCG/VIAL IV SCH (09:00)
[2022-07-31] MEDS ORDERED: BIMATOPROST(OPTH) 2.5 ML BOTTLE OP SCH (09:00)
[2022-07-31] MEDS ORDERED: SERTRALINE HCL 50 MG TAB PO SCH (09:00)
[2022-07-31] MEDS ORDERED: LEVOTHYROXINE75 MCG PO (09:02)
[2022-07-31] MEDS: SIMVASTATIN 20 MG TAB PO SCH (09:21)
[2022-07-31] MEDS: LOSARTAN POTASSIUM 100 MG TAB PO SCH (09:22)
[2022-07-31] MEDS: LEVOTHYROXINE SODIUM 100 MCG TAB PO SCH (09:22)
[2022-07-31] MEDS: PANTOPRAZOLE SOD 40 MG TABEC PO SCH (09:22)
[2022-07-31] MEDS: FOLIC ACID 1 MG TAB PO SCH (09:22)
[2022-07-31] MEDS ORDERED: SODIUM CHLORIDE 452MG TAB PO ONE (10:45)
[2022-07-31] MEDS ORDERED: SODIUM CHLORIDE 1 GM TAB PO SCH (11:00)
[2022-07-31] MEDS ORDERED: PROZAC20 MG PO (15:25)
[2022-07-31] MEDS: ENOXAPARIN SOD INJ 40 MG/0.4 ML SYR SC SCH (17:06)
[2022-07-31] MEDS ORDERED: SODIUM CHLORIDE 1 GM TAB PO ONE (17:45)
[2022-07-31] MEDS: BIMATOPROST(OPTH) 2.5 ML BOTTLE OP SCH (20:43)
[2022-07-31] MEDS: FLUOXETINE HCL 20 MG CAP PO SCH (20:44)
[2022-08-01] VITALS (8 sets, daily range): BP systolic 105–139; BP diastolic 59–75
[2022-08-01 06:10] LABS: BASOPHILS % 0.2 % (0.0-1.0); HEMOGLOBIN 10.9 g/dL (12.0-16.0); LYMPHOCYTES # (AUTO) 1.6 (1.0-3.2); LYMPHOCYTES % 18.1 % (18.0-39.1); MEAN CORPUSCULAR HEMOGLOBIN 29.9 pg (28-32); MEAN CORPUSCULAR VOLUME 90.4 fL (81-99); MONOCYTES # (AUTO) 1.1 (0.2-0.8); MONOCYTES % 12.4 % (4.4-11.3); NEUTROPHILS % 68.7 % (38.7-80.0); PLATELET COUNT 303 x10e3/uL (140-360); RED BLOOD COUNT 3.65 x10e6/uL (3.6-5.1)
[2022-08-01 06:32] LABS: ANION GAP 13.2 mmol/L (8-16); CALCIUM 8.4 mg/dL (8.4-10.2); CREATININE, SERUM 0.64 mg/dL (0.57-1.11); POTASSIUM 3.2 mmol/L (3.5-5.1)
[2022-08-01] MEDS: LEVOTHYROXINE SODIUM 100 MCG TAB PO SCH (08:03)
[2022-08-01] MEDS ORDERED: POTASSIUM CHLORIDE 20 MEQ TAB CR PO STA (08:32)
[2022-08-01] MEDS: SIMVASTATIN 20 MG TAB PO SCH (09:00)
[2022-08-01] MEDS ORDERED: SODIUM CHLORIDE 452MG TAB PO SCH (09:00)
[2022-08-01] MEDS: LOSARTAN POTASSIUM 100 MG TAB PO SCH (09:28)
[2022-08-01] MEDS: PANTOPRAZOLE SOD 40 MG TABEC PO SCH (09:28)
[2022-08-01] MEDS: SODIUM CHLORIDE 1 GM TAB PO SCH ×2 (09:28→16:46)
[2022-08-01] MEDS: FOLIC ACID 1 MG TAB PO SCH (11:04)
[2022-08-01] MEDS: ENOXAPARIN SOD INJ 40 MG/0.4 ML SYR SC SCH (16:46)
[2022-08-01] MEDS: DOCUSATE SODIUM 100 MG CAP PO PRN ×2 (16:50→20:33)
[2022-08-01] MEDS: FLUOXETINE HCL 20 MG CAP PO SCH (20:29)
[2022-08-01] MEDS: BIMATOPROST(OPTH) 2.5 ML BOTTLE OP SCH (20:30)
[2022-08-02] VITALS: BP 147/79
[2022-08-02 04:00] VITALS: BP_SYST 129; BP_SYST 139; BP_DIAS 68; BP_DIAS 73
[2022-08-02] MEDS: LEVOTHYROXINE SODIUM 100 MCG TAB PO SCH (05:12)
[2022-08-02 05:56] LABS: BASOPHILS % 0.5 % (0.0-1.0); HEMATOCRIT 31.4 % (34.2-44.1); HEMOGLOBIN 10.8 g/dL (12.0-16.0); LYMPHOCYTES # (AUTO) 1.5 (1.0-3.2); LYMPHOCYTES % 17.4 % (18.0-39.1); MEAN CORPUSCULAR HEMOGLOBIN 30.1 pg (28-32); MEAN CORPUSCULAR HGB CONC 34.4 g/dL (31-35); MEAN CORPUSCULAR VOLUME 87.5 fL (81-99); MONOCYTES # (AUTO) 0.9 (0.2-0.8); MONOCYTES % 10.5 % (4.4-11.3); NEUTROPHILS # (AUTO) 6.2 (2.1-6.9); NEUTROPHILS % 70.6 % (38.7-80.0); PLATELET COUNT 306 x10e3/uL (140-360); RED BLOOD COUNT 3.59 x10e6/uL (3.6-5.1); RED CELL DISTRIBUTION WIDTH 12.6 % (11.7-14.4)
[2022-08-02 06:25] LABS: ANION GAP 12.7 mmol/L (8-16); CALCIUM 8.6 mg/dL (8.4-10.2); CREATININE, SERUM 0.64 mg/dL (0.57-1.11); POTASSIUM 3.7 mmol/L (3.5-5.1)
[2022-08-02 08:09] VITALS: BP 140/69
[2022-08-02 09:00] VITALS: BP 140/69
[2022-08-02] MEDS: FOLIC ACID 1 MG TAB PO SCH (09:46)
[2022-08-02] MEDS: PANTOPRAZOLE SOD 40 MG TABEC PO SCH (09:46)
[2022-08-02] MEDS: LOSARTAN POTASSIUM 100 MG TAB PO SCH (09:47)
[2022-08-02] MEDS: SIMVASTATIN 20 MG TAB PO SCH (09:47)
[2022-08-02] MEDS: SODIUM CHLORIDE 1 GM TAB PO SCH ×2 (09:47→17:23)
[2022-08-02 12:10] VITALS: BP 120/62
[2022-08-02] MEDS ORDERED: ONDANSETRON HCL 4 MG ORAL DISINTEGRATING TAB PO PRN (12:45)
[2022-08-02] MEDS ORDERED: LOSARTAN POTASS25 MG PO (16:47)
[2022-08-02 16:48] VITALS: BP 145/71
[2022-08-02] MEDS: ENOXAPARIN SOD INJ 40 MG/0.4 ML SYR SC SCH (17:23)
== END 2022-08-02 17:48 | disposition home or self-care (01) | DRG 641 ==
LOC: MED/SURG3 15:37 → OBSVTOIN 08-02 12:19
PROVIDERS: ADMIT Internal Medicine; ATTEND Internal Medicine
DX: E87.1 Hypo-osmolality and hyponatremia (principal); T43.225A Adverse effect of selective serotonin reuptake inhibitors, initial encounter; I10 Essential (primary) hypertension; E78.5 Hyperlipidemia, unspecified; F42.9 Obsessive-compulsive disorder, unspecified; R91.8 Other nonspecific abnormal finding of lung field; F32.A Depression, unspecified; Z88.1 Allergy status to other antibiotic agents; Z88.8 Allergy status to other drugs, medicaments and biological substances; Z83.3 Family history of diabetes mellitus; Z82.49 Family history of ischemic heart disease and other diseases of the circulatory system
CPT/HCPCS: 36415; 71045; 80048; 80053; 80061; 81001; 82947; 83036; 83735; 83935; 84100; 84295; 84300; 84443; 84484; 84520; 84550; 85025; 85610; 85730; 93041; 99252; G0378; J1650

== ENCOUNTER → 2022-08-02 | Emergency (ER) | payer MEDICARE ==
[~2022-08-02] VITALS: Ht 160 cm; Wt 50.8 kg
[~2022-08-02] MED LIST changes: +CEFTRIAXONE 1 GM VIAL ONE; +FLUOXETINE HCL20 MG PO; +IOPAMIDOL 370 MG/ML 100 ML INFUS..BTL INJ ONE; +LEVOTHYROXINE100 MC1 IV; +LEVOTHYROXINE75 MCG PO; +LOSARTAN POTASS25 MG PO; +PROZAC20 MG PO; +SODIUM CHLORIDE 0.9% 250ML 250 ML ONE
[2022-08-03 00:17] LABS: BASOPHILS % 0.2 % (0.0-1.0); HEMATOCRIT 36.2 % (34.2-44.1); HEMOGLOBIN 11.7 g/dL (12.0-16.0); LYMPHOCYTES # (AUTO) 1.8 (1.0-3.2); LYMPHOCYTES % 19.4 % (18.0-39.1); MEAN CORPUSCULAR HGB CONC 32.3 g/dL (31-35); MEAN CORPUSCULAR VOLUME 92.8 fL (81-99); MONOCYTES # (AUTO) 0.8 (0.2-0.8); MONOCYTES % 8.9 % (4.4-11.3); NEUTROPHILS # (AUTO) 6.4 (2.1-6.9); NEUTROPHILS % 70.7 % (38.7-80.0); PLATELET COUNT 321 x10e3/uL (140-360); RED CELL DISTRIBUTION WIDTH 12.5 % (11.7-14.4)
[2022-08-03 00:34] LABS: ALBUMIN 3.3 g/dL (3.5-5.0); ALBUMIN/GLOBULIN RATIO 0.8 (0.8-2.0); ANION GAP 15.8 mmol/L (8-16); CALCIUM 8.9 mg/dL (8.4-10.2); CREATININE, SERUM 0.62 mg/dL (0.57-1.11); POTASSIUM 3.8 mmol/L (3.5-5.1)
[2022-08-03 00:37] LABS: CLARITY,URINE CLEAR (CLEAR); COLOR,URINE YELLOW (YELLOW); KETONES,URINE 1+ (NEGATIVE); LEUKOCYTE ESTERASE ,URINE NEGATIVE (NEGATIVE); NITRITE,URINE NEGATIVE (NEGATIVE); PROTEIN,URINE DIPSTICK NEGATIVE (NEGATIVE); URINE UROBILINOGEN 0.2 mg/dL (0.2 - 1)
[2022-08-03 00:39] LABS: BACTERIA,URINE RARE /HPF; EPITHELIAL CELLS,URINE FEW /LPF; WBC,URINE (MAN) 0-5 /HPF (0-5)
[2022-08-03 00:54] LABS: AMPHETAMINES SCREEN,URINE NEGATIVE (NEGATIVE); BENZODIAZEPINES SCREEN,URINE NEGATIVE (NEGATIVE); PHENCYCLIDINE SCREEN,URINE NEGATIVE (NEGATIVE)
== END | disposition other institution (70) ==
LOC: ER 23:58 → UNDOADMOB 08-03 07:34 → ERHOLD 08-03 07:34 → UNDODISOB 08-03 08:56 → ER 08-03 08:57
DX: G83.5 Locked-in state (principal); J18.8 Other pneumonia, unspecified organism; I10 Essential (primary) hypertension; I48.91 Unspecified atrial fibrillation; F41.9 Anxiety disorder, unspecified; F42.9 Obsessive-compulsive disorder, unspecified
CPT/HCPCS: 36415; 51700; 70496; 70498; 71045; 71250; 80053; 80307; 81001; 82948; 85025; 87040; 99285; G0378; J0456; J0696; J7050; Q9967

== ENCOUNTER 2022-08-06 13:45 | Emergency (ER) | payer MEDICARE ==
[~2022-08-06] VITALS: Ht 160 cm; Wt 50.8 kg
[~2022-08-06 13:45] MED LIST changes: -CEFTRIAXONE 1 GM VIAL ONE; -IOPAMIDOL 370 MG/ML 100 ML INFUS..BTL INJ ONE; -SODIUM CHLORIDE 0.9% 250ML 250 ML ONE
[2022-08-06 14:45] LABS: BASOPHILS % 0.4 % (0.0-1.0); HEMATOCRIT 34.1 % (34.2-44.1); HEMOGLOBIN 11.4 g/dL (12.0-16.0); LYMPHOCYTES # (AUTO) 1.4 (1.0-3.2); LYMPHOCYTES % 26.7 % (18.0-39.1); MEAN CORPUSCULAR HGB CONC 33.4 g/dL (31-35); MEAN CORPUSCULAR VOLUME 89.7 fL (81-99); MONOCYTES # (AUTO) 0.5 (0.2-0.8); MONOCYTES % 9.6 % (4.4-11.3); NEUTROPHILS # (AUTO) 3.4 (2.1-6.9); NEUTROPHILS % 62.4 % (38.7-80.0); PLATELET COUNT 320 x10e3/uL (140-360); RED CELL DISTRIBUTION WIDTH 13.1 % (11.7-14.4)
[2022-08-06 14:48] LABS: AMPHETAMINES SCREEN,URINE NEGATIVE (NEGATIVE); BENZODIAZEPINES SCREEN,URINE NEGATIVE (NEGATIVE); CLARITY,URINE CLEAR (CLEAR); COLOR,URINE YELLOW (YELLOW); KETONES,URINE NEGATIVE (NEGATIVE); LEUKOCYTE ESTERASE ,URINE NEGATIVE (NEGATIVE); NITRITE,URINE NEGATIVE (NEGATIVE); PHENCYCLIDINE SCREEN,URINE NEGATIVE (NEGATIVE); PROTEIN,URINE DIPSTICK NEGATIVE (NEGATIVE)
[2022-08-06 14:49] LABS: URINE UROBILINOGEN 0.2 mg/dL (0.2 - 1)
[2022-08-06 14:50] LABS: BACTERIA,URINE MODERATE /HPF; EPITHELIAL CELLS,URINE RARE /LPF; RBC,URINE 0-5 /HPF (0-5); WBC,URINE (MAN) 0-5 /HPF (0-5)
[2022-08-06 14:51] LABS: MUCUS,URINE FEW (RARE)
[2022-08-06 15:01] LABS: ALBUMIN 3.1 g/dL (3.5-5.0); ALBUMIN/GLOBULIN RATIO 0.8 (0.8-2.0); ANION GAP 13.6 mmol/L (8-16); CALCIUM 8.8 mg/dL (8.4-10.2); CREATININE, SERUM 0.63 mg/dL (0.57-1.11); POTASSIUM 3.6 mmol/L (3.5-5.1)
[2022-08-06 15:04] LABS: SALICYLATE < 5.0 mg/dL (0-30)
[2022-08-06] MEDS ORDERED: SODIUM CHLORIDE 0.9% 1000ML 1,000 ML IV SCH (16:30)
== END 2022-08-06 18:33 | disposition short-term general hospital (02) ==
LOC: ER 13:50
DX: F20.2 Catatonic schizophrenia (principal); I10 Essential (primary) hypertension; I48.91 Unspecified atrial fibrillation; F41.9 Anxiety disorder, unspecified; F32.A Depression, unspecified; F42.9 Obsessive-compulsive disorder, unspecified; R94.31 Abnormal electrocardiogram [ECG] [EKG]
CPT/HCPCS: 36415; 70450; 71045; 80053; 80307; 80320; 80329 ×2; 81001; 84484; 85025; 93005; 99284; J7030